=== PATIENT | male | born 1950 | race Caucasian/White ===

== ENCOUNTER 2019-07-27 23:08 | Emergency (ER) | payer MEDICARE ==
[2019-07-27] MEDS ORDERED: LIDOCAINE 5% TOPICAL PATCH TP ONE (23:38)
[2019-07-27] MEDS ORDERED: KETOROLAC TROMETHAMINE 15MG/ML ONE (23:38)
== END 2019-07-28 00:14 | disposition home or self-care (01) ==
LOC: EDH 23:08
DX: S43.492A Other sprain of left shoulder joint, initial encounter (principal); Z91.041 Radiographic dye allergy status; Z90.49 Acquired absence of other specified parts of digestive tract; W18.39XA Other fall on same level, initial encounter; Y93.02 Activity, running; Y92.89 Other specified places as the place of occurrence of the external cause; Y99.8 Other external cause status
CPT/HCPCS: 73030; 96372; 99284; J1885

== ENCOUNTER 2019-08-14 10:31 | Day surgery (SDC) | payer MEDICARE ==
[2019-08-13 13:10] LABS: BASOPHILS % (AUTO) 0.7 % (0.0-5.0); EOSINOPHILS % (AUTO) 2.6 % (0.0-8.0); HEMATOCRIT 38.4 % (42-54); LYMPHOCYTES % (AUTO) 20.2 % (21.0-51.0); MEAN CORPUSCULAR HEMOGLOBIN 31.4 pg (27.0-33.0); MEAN CORPUSCULAR HGB CONC 33.6 g/dL (32.0-36.0); MEAN CORPUSCULAR VOLUME 93.4 fL (79-99); MONOCYTES % (AUTO) 7.7 % (3.0-13.0); NEUTROPHILS % (AUTO) 68.6 % (40.0-77.0); PLATELET COUNT (AUTO) 189 K/uL (130-400); RED BLOOD CELL COUNT(AUTO) 4.11 MIL/uL (4.50-6.20); RED CELL DISTRIBUTION WIDTH 12.8 % (11.0-15.5); WHITE BLOOD COUNT (AUTO) 5.7 K/uL (4.8-10.8)
[2019-08-13 13:17] LABS: CREATININE 0.9 mg/dL (0.5-1.5); POTASSIUM 4.1 mmol/L (3.5-5.1)
[2019-08-13 13:52] VITALS: BP 107/62
--- NOTE | 2019-08-13 18:27 | NUR ---
Called Doctor Aaron x2 to cell phone number to report chest xray results, no answer.
[2019-08-14] VITALS (17 sets, daily range): BP systolic 100–115; BP diastolic 50–74
[~2019-08-14] VITALS: Ht 177.8 cm; Wt 98.4 kg
[~2019-08-14 10:31] MED LIST: AEC81 PO; CEFAZOLIN SODIUM 1 GM VIAL IVP SCH; CHOL200016 PO; CYAN500T53 SL; IRON18TA PO; LACTATED RINGERS 1000ML 1,000 ML IV SCH
[2019-08-14] MEDS ORDERED: LIDOCAINE PF 2% 5ML ABBOJECT ONE (12:32)
[2019-08-14] MEDS ORDERED: PROPOFOL 10 MG/ML 20ML VIAL IV ONE (12:32)
[2019-08-14] MEDS ORDERED: ROCURONIUM 10MG/1ML SYR 10 MG/ML ML ONE (12:33)
[2019-08-14] MEDS ORDERED: FENTANYL CITRATE PF 50 MCG/1 ML 5ML AMP IV ONE (12:33)
[2019-08-14] MEDS ORDERED: MIDAZOLAM HCL 1 MG/ML 2ML VIAL ONE (12:33)
[2019-08-14] MEDS ORDERED: EPINEPHRINE 1 MG/ML 30ML VIAL IJ ONE (13:05)
[2019-08-14] MEDS ORDERED: ROPIVACAINE 0.5% 5MG/ML 30ML IJ ONE (14:27)
[2019-08-14] MEDS ORDERED: EPHEDRINE SULFATE 50 MG/ML AMPULE ONE (15:26)
[2019-08-14] MEDS ORDERED: NEOSTIGMINE 5MG/5ML SYR IV ONE (16:03)
[2019-08-14] MEDS ORDERED: GLYCOPYRROLATE 1 MG/5 ML SYRINGE ONE (16:03)
[2019-08-14] MEDS ORDERED: KETOROLAC TROMETHAMINE 30MG/ML ONE (16:11)
== END 2019-08-14 18:10 | disposition home or self-care (01) ==
LOC: DAH 10:31
PROVIDERS: ATTEND Orthopaedic Surgery
DX: M75.102 Unspecified rotator cuff tear or rupture of left shoulder, not specified as traumatic (principal); M75.42 Impingement syndrome of left shoulder; M75.82 Other shoulder lesions, left shoulder; M25.712 Osteophyte, left shoulder; G47.30 Sleep apnea, unspecified; E66.01 Morbid (severe) obesity due to excess calories; Z88.3 Allergy status to other anti-infective agents; Z91.013 Allergy to seafood; Z79.82 Long term (current) use of aspirin; Z68.31 Body mass index [BMI] 31.0-31.9, adult; Z96.652 Presence of left artificial knee joint; Z90.49 Acquired absence of other specified parts of digestive tract; Z98.890 Other specified postprocedural states; Z79.899 Other long term (current) drug therapy; Z72.89 Other problems related to lifestyle; Z82.49 Family history of ischemic heart disease and other diseases of the circulatory system; Z83.3 Family history of diabetes mellitus
CPT/HCPCS: 23130; 23410; 29822; 36415; 64415; 71045; 80048; 85025; 93005; 96365; A4215; A4221; A4222; A4223; A4450; A4565; A4606; A4649 ×4; A4663; A4930; A6204; A6207; A6223; A6260; C1713; J0171; J0690; J1885; J2001; J2250; J2704; J2710; J2795; J3490 ×2; J7120 ×3; 99157; J3010

== ENCOUNTER 2025-07-11 11:57 | Emergency (ER) | payer MEDICARE ==
[~2025-07-11] VITALS: Ht 177.8 cm; Wt 94.3 kg
[~2025-07-11 11:57] MED LIST changes: -CEFAZOLIN SODIUM 1 GM VIAL IVP SCH; -LACTATED RINGERS 1000ML 1,000 ML IV SCH
[2025-07-11 11:59] VITALS: BP 130/60; PULSE 84; RESP 16; TEMP 97.5
[2025-07-11] MEDS ORDERED: ACYC-61 PO (13:35)
[2025-07-11] MEDS ORDERED: PRED20TA3 PO (13:35)
--- NOTE | 2025-07-11 13:35 | ERN ---
ED Note History of Present Illness Stated Complaint: RASH Chief Complaint: Skin Rash/Abscess Time Seen by MD: 12:09 Dictation: 74-year-old male presenting to the emergency department with a rash to the right flank area for the past few days causing burning and pain. Allergies: Coded Allergies: Iodine and Iodide Containing Produc (Unverified Allergy, Unknown, 07/28/19) Home Meds Reported Medications Cholecalciferol (Vitamin D3) (Vitamin D) 2,000 Unit Tablet, 2000 UNIT PO DAILY, TAB 08/13/19 Cyanocobalamin (Vitamin B-12) (Vitamin B-12) 500 Mcg Tab.subl, 500 MCG SL 2X WEEK, TAB.SL 08/13/19 Iron (Iron) 18 Mg Tablet, 18 MG PO DAILY, TAB 08/13/19 Aspirin (ASPIRIN 81 MG ECTAB) 81 Mg Ectab, 81 MG PO DAILY, TAB.EC 08/13/19 Past Medical History Past Medical History: Cancer Surgical History: Other Review of System Dictation Constitutional: Negative for fever,chills, and weight loss Eyes: Negative for injury, pain,redness, and discharge ENT: Negative for injury,pain or swelling Cardiovascular: Negative for chest pain, palpitations, and edema Respiratory: Negative for shortness of breath, cough, and wheezing, Abdomen/GI: Negative for abdominal pain, nausea, vomiting, diarrhea, and constipation Back: Negative for injury and pain : Negative for injury, bleeding and discharge MS/Extremity: Negative for injury and deformity Skin: Per HPI Neuro: Negative for headache, weakness, numbness, tingling, and seizure Psych: Negative for suicide ideation, homicidal ideation, and hallucinations Initial Vital Sign VS Vital Signs Date Time Temp Pulse Resp B/P (MAP) Pulse Ox O2 Delivery O2 Flow Rate FiO2 07/11/25 11:59 97.5 84 16 130/60 98 Room Air Physical Exam Dictation General: awake, alert, NAD Head/Face: Normocephalic, atraumatic Eyes: PERRL, EOMI, vision at baseline ENT: oral cavity clear, TMs clear, no signs of infection Neck: Trachea midline, supple, no nuchal rigidity Cardiovascular: RRR, normal S1/S2, No MRGs, no JVD Respiratory: CTAB, no respiratory distress, No rales or wheezes Abdomen: Soft, non-tender, non-distended, normal bowel sounds, no guarding or rebound. Skin: Warm, dry, normal turgor, rash to right flank area up to the umbilical area tracking along the dermatome line MS/Extremity: Pulses equal, no cyanosis, neurovascular intact, FROM Neuro: COAx4, GCS 15, strength 5/5, CN 2-12 intact, normal cerebellar exam, normal gait, Psych: Normal behavior, mood, and affect normal ED Course ED Course Vital Signs Date Time Temp Pulse Resp B/P (MAP) Pulse Ox O2 Delivery O2 Flow Rate FiO2 07/11/25 11:59 97.5 84 16 130/60 98 Room Air Medical Decision Making MDM MDM: Differential diagnosis: Rationale: Tests considered and ordered secondary to shared decision making include: Previous outside records reviewed: Old ER visits. Risk of complication and/or morbidity or mortality of patient management: None Medications-Per medication reconciliation Need for hospitalization: Patient does not meet criteria for hospitalization. Need for emergency major/minor surgery: No There are no social concerns with this patient. Prescription drug management Prescriptions will include symptomatic care Patient's prior external medical records from other ER visits were reviewed by me as indicated. Prior testing and results from previous visits were reviewed. Prior tests were taken into account with medical decision making and resource utilization, independent historian/historians were used to obtain complete medical history. I independently interpreted the test that were performed, results were reviewed by me and considered findings on radiology if ordered. Medical management and examination interpretation discussions were had by me with other qualified healthcare professionals as indicated for the patient's care. 74-year-old male with shingles nontoxic vital signs stable no diabetes, prescriptions given. DX & DISP Disposition: Discharge Departure Impression: Primary Impression: Shingles Condition: Stable Scripts Acyclovir (Acyclovir) 200 Mg Capsule 1 CAP PO 5XDAY for 5 Days, #25 CAP 0 Refills Prov: JUAN JOHNS MD 07/11/25 Prednisone (Prednisone) 20 Mg Tablet 1 TAB PO BID for 5 Days, #10 TAB 0 Refills Prov: JUAN JOHNS MD 07/11/25 Referrals: SELF,REFERRAL (PCP) JUAN JOHNS MD Jul 11, 2025 13:35
== END 2025-07-11 14:22 | disposition home or self-care (01) ==
LOC: EDH 11:57
DX: B02.9 Zoster without complications (principal); R10.A1 Flank pain, right side; Z88.8 Allergy status to other drugs, medicaments and biological substances; Z79.82 Long term (current) use of aspirin
CPT/HCPCS: 99283